=== PATIENT | female | born 1980 | race Caucasian/White ===

== ENCOUNTER → 2018-01-28 | Outpatient (CLI) | payer OTHER | END | disposition home or self-care (01) | LOC: C.LAB 10:19 | PROVIDERS: ATTEND Family Medicine | DX: Z00.00 Encounter for general adult medical examination without abnormal findings (principal) ==

== ENCOUNTER 2020-01-22 08:58 | Observation (INO) ==
--- NOTE | 2019-12-30 11:19 | PAT Medication Instructions ---
Medication Instructions Date of Service December 30, 2019 Home Medications albuterol sulfate 1 puff INHALATION Q6H PRN Take morning of surgery With a small sip of water, OTHERWISE NOTHING TO EAT OR DRINK AFTER MIDNIGHT: albuterol sulfate 1 puff INHALATION Q6H PRN (use if needed; please bring with you to hospital day of surgery if possible) Take evening before surgery albuterol sulfate 1 puff INHALATION Q6H PRN (if needed) Other Notes If you have any questions please call us at [phone] or [phone] or [phone] or [phone]
--- NOTE | 2019-12-31 09:36 | Anesthesiology Consultation ---
Date of Service December 31, 2019 Assessment & Plan (1) Encounter for pre-operative examination: - Check test AM DOS Per PAT assessment on 12/30: Travel screen- Lives in [facility]. Works in [employer]. Uses mask. Washes hands. No known COVID-19 positive contacts. No current COVID-19 related symptoms. Patient scheduled for preop protocol COVID-19 testing 01/18 ([facility] Awaiting results. Chart Review Chart Review: Acceptable Risk for Surgery (pending COVID testing) and Patient seen in Pre Admission Testing Teaching & Discussion Pre-Anesthesia Teaching/Discussion Notes: Instructed NPO after midnight before surgery,except medications with 15 cc of water. Medication instructions provided according to the PAT guidelines. History Surgery Operation Date: 01/22/20 12:10 Proposed Procedures p Robotic Total Laparoscopic Hysterectomy - Justin Lake MD Height/Weight Height: 4 ft 10 in Weight: 67.5 kg Allergies Allergy/AdvReac Type Severity Reaction Status Date / Time Bactrim Allergy Unknown HIVES Verified 02/07/16 14:43 lemon Allergy Unknown HIVES Verified 12/31/19 08:17 orange Allergy Unknown HIVES Verified 12/31/19 08:17 Sulfa (Sulfonamide Allergy Unknown HIVES Verified 12/31/19 08:17 Antibiotics) sulfamethoxazole Allergy Unknown HIVES Verified 12/31/19 08:17 trimethoprim Allergy Unknown HIVES Verified 12/31/19 08:17 adhesive Allergy Redness of Verified 12/31/19 08:17 Skin Medications Home Medications Medication Instructions Recorded Confirmed Last Taken albuterol sulfate 1 puff INHALATION Q6H PRN 05/14/19 12/31/19 Unknown Past Medical History Medical History Asthma exercise induced- stable History of kidney stones Exercise / Class Metabolic Activity II 4-5 Yardwork/Stairs/Walk up hill Past Family History Family History Mother Diabetes Aunt Diabetes Brother PONV (postoperative nausea and vomiting) Past Surgical History Surgical History [place] [facility] [place] History of cryosurgery History of ear surgery Hx of section X2 Hx of dilation and curettage Hx of mastoidectomy RIGHT Past Anesthesia History No Hx of Anesthesia Complications and No Family Hx of Anesthesia Complications (except brother- PONV*) History of PONV No Hx of PONV and No Hx of Motion Sickness Social History Smoking Status: Former smoker Do You Dip or Chew Tobacco: No Smoking End Date: Quit 2001 Hx Alcohol Use: Yes Alcohol type: wine alcohol intake frequency: holidays/special occasions only Hx Substance Use: No substance use type: does not use Review of Systems Patient denies chest pain, shortness of breath, fever, chills, cough, wheezing, palpitations. Physical Exam Vital Signs VITALS BP 112/77 P 71 TEMP 97.1 SP02 98%RA RESP 16 PHYSICAL Full neck and c-spine range of motion. Full TMJ range of motion. TMD 3 finger breaths Mallampati Score 3 Dentition: intact Lungs: clear throughout to auscultation Cardiac: regular rate and rhythm, no murmurs noted Spine: normal Extremities: no edema Testing Laboratory Results 12/31/19 09:50 Blood Type B Positive 12/31/19 09:50 Antibody Screen NEGATIVE 12/31/19 09:50
[2019-12-31 10:17] LABS: Basophils # (auto) 0.02 K/uL (0-0.2); Basophils % (auto) 0.3 %; Eosinophils # (auto) 0.26 K/uL (0-0.5); Eosinophils % (auto) 3.7 %; Hemoglobin 13.8 g/dL (12.0-16.0); Immature Granulocytes # (auto) 0.01 K/uL (0.00-0.02); Immature Granulocytes % (auto) 0.1 %; Lymphocytes # (auto) 2.19 K/uL (1.2-3.4); Lymphocytes % (auto) 31.1 %; Mean Corpuscular Hemoglobin 29.4 pg (25-34); Mean Corpuscular Hgb Conc 32.9 g/dL (32-36); Mean Corpuscular Volume 89.4 fL (80-100); Mean Platelet Volume 10.5 fL (7.4-10.4); Monocytes # (auto) 0.45 K/uL (0.11-0.59); Monocytes % (auto) 6.4 %; Neutrophils # (auto) 4.12 K/uL (1.4-6.5); Neutrophils % (auto) 58.4 %; Platelet Count 262 K/uL (130-400); RDW Coefficient of Variation 13.1 % (11.5-14.5); White Blood Count 7.05 K/uL (4.8-10.8)
[~2020-01-22 08:58] MED LIST: CEFAZOLIN 2000MG 2,000 MG/15 ML SYR IV SCH; DEXAMETHASONE SOD INJ 4 MG/ML VIAL ONE; GLYCOPYRROLATE 0.2 MG/ML VIAL ONE; LACTATED RINGER'S 1,000 ML IV SCH; LARYING-O-JET KIT (LTA) ONE; LIDOCAINE HCL 2% 2 ML VIAL/AMP(20MG/ML) INFIL ONE; LR 15ML/HR IV SCH; MIDAZOLAM HCL 1 MG/ML 2ML VIAL ONE; NEOSTIGMINE METHYLSULFATE 5 MG/5 ML SYR ONE; ONDANSETRON INJ 2 MG/ML 2 ML VIAL ONE; PROPOFOL IV EMULSION 10 MG/ML 20 ML VIAL IV ONE; ROCURONIUM BROMIDE 10 MG/ML 5 ML VIAL IV ONE; fentaNYL citrate 100 MCG/2 ML VIAL ONE
[2020-01-22 09:33] LABS: Basophils # (auto) 0.01 K/uL (0-0.2); Basophils % (auto) 0.2 %; Eosinophils # (auto) 0.32 K/uL (0-0.5); Hematocrit (blood only) 45.3 % (37-47); Hemoglobin 14.7 g/dL (12.0-16.0); Immature Granulocytes # (auto) 0.01 K/uL (0.00-0.02); Immature Granulocytes % (auto) 0.2 %; Lymphocytes # (auto) 2.18 K/uL (1.2-3.4); Mean Corpuscular Hemoglobin 29.3 pg (25-34); Mean Corpuscular Volume 90.2 fL (80-100); Mean Platelet Volume 10.1 fL (7.4-10.4); Monocytes # (auto) 0.45 K/uL (0.11-0.59); Neutrophils # (auto) 3.44 K/uL (1.4-6.5); Neutrophils % (auto) 53.6 %; Platelet Count 247 K/uL (130-400); RDW Coefficient of Variation 13.1 % (11.5-14.5); Red Blood Count 5.02 M/uL (4.2-5.4); White Blood Count 6.41 K/uL (4.8-10.8)
[2020-01-22 09:35] LABS: Mean Corpuscular Hgb Conc 32.5 g/dL (32-36)
--- NOTE | 2020-01-22 09:54 | History & Physical Bridge Note ---
Date of Service January 22, 2020 History & Physical Bridge Note I have examined the patient, reviewed the History & Physical and in the interval since the performance of the History & Physical I have noted the following changes of clinical significance: no changes noted
[2020-01-22] MEDS ORDERED: BUPIVACAINE 0.5 % 5 MG/1 ML MPF 30ML VIAL ONE (10:03)
[2020-01-22] MEDS ORDERED: ATROPINE SULFATE 0.1 MG/ML 10ML SYR IV PRN (10:26)
[2020-01-22] MEDS ORDERED: ONDANSETRON INJ 2 MG/ML 2 ML VIAL IV PRN ×2 (10:26→12:54)
[2020-01-22] MEDS ORDERED: fentaNYL citrate 100 MCG/2 ML VIAL IV PRN (10:26)
[2020-01-22] MEDS ORDERED: ePHEDrine sulfate 50 MG/ML AMP IV PRN (10:26)
[2020-01-22] MEDS ORDERED: KETOROLAC 30 MG/ML VIAL ONE (10:46)
[2020-01-22] MEDS ORDERED: fentaNYL citrate 100 MCG/2 ML VIAL ONE (10:51)
[2020-01-22] MEDS ORDERED: PHENYLEPHRINE 100MCG/ML 5ML SYR ONE (10:55)
[2020-01-22] MEDS ORDERED: ROCURONIUM BROMIDE 10 MG/ML 5 ML VIAL IV ONE ×2 (12:00)
[2020-01-22] MEDS ORDERED: TISSEEL FIBRIN SEALANT 10ML TOP ONE (12:52)
--- NOTE | 2020-01-22 12:53 | Post Operative Brief Note ---
PG Immediate Post Op with CF Date of Surgery January 22, 2020 Pre & Post Diagnosis Operation Date: 01/22/20 10:40 Pre-Op Diagnosis: Abnormal Uterine Bleeding, Pelvic Pain Post-Op Diagnosis: Abnormal Uterine Bleeding, Pelvic Pain, Extensive adhesive disease I identified the patient and participated in the time-out.: Yes Procedure Operation Date: 01/22/20 10:40 Actual Procedures p Robotic Total Laparoscopic Hysterectomy with Bilateral Salpaingectomies, Extensive lysis of adhesions >1 hour and Cystoscopy(Not Applicable) - Justin Lake MD Surgeon Justin Lake MD Assurance Engineer None Estimated Blood Loss 50 Findings Consistent with Post-Op Diagnosis Specimens Specimen Description: A. Uterus, cervix, and Bilateral Falopian Tubes Drains Rodriguez Catheter (18 Fr rodriguez catheter inserted by Dr. Lake without difficulty. Draining clear yellow urine, Anesthesia to monitor urine output. )
[2020-01-22] MEDS ORDERED: SIMETHICONE 80 MG CHEW PO PRN (12:54)
[2020-01-22] MEDS ORDERED: OXYCODONE/ACETAMINOPHEN 5mg/325mg TAB PO PRN ×2 (12:54)
[2020-01-22] MEDS ORDERED: KETOROLAC 30 MG/ML VIAL IV PRN (12:54)
[2020-01-22] MEDS ORDERED: ACETAMINOPHEN 325 MG TAB PO PRN (12:54)
--- NOTE | 2020-01-22 13:51 | Anesthesiology Progress Note ---
Date of Service January 22, 2020 Anesthesia Post Procedure Vital Signs Vital Signs: Temp Pulse Pulse Resp BP BP Pulse Ox 01/22/20 13:35 74 12 133/77 95 01/22/20 13:25 83 17 128/81 95 01/22/20 13:15 87 17 126/75 95 01/22/20 13:08 36.3 C L 100 H 15 122/74 96 01/22/20 09:36 36.7 C 81 20 127/86 97 Pain Intensity Abdomen: Pain Intensity: 2 Transfer of Care Handoff Completed per policy Notes Mental Status: alert / awake / arousable and participated in evaluation Patient Amnestic to Procedure: Yes Nausea / Vomiting: adequately controlled Pain: adequately controlled Airway Patency, RR, SpO2: stable & adequate BP & HR: stable & adequate Hydration State: stable & adequate Anesthetic Complications: no major complications apparent and Pt Satisfied with anesthetic care
[2020-01-22] MEDS ORDERED: DOCUSATE SODIUM 100 MG CAP PO SCH (21:00)
--- NOTE | 2020-01-23 13:32 | Operative Report (OR) ---
DATE OF OPERATION: 01/22/2020 PROCEDURE: Robotic-assisted total laparoscopic hysterectomy with bilateral salpingectomy, extensive lysis of adhesions was greater than 1 hour and cystoscopy. SURGEON: Dr. Justin Lake. PREOPERATIVE DIAGNOSES: 1. Abnormal uterine bleeding. 2. Pelvic pain. 3. Known extensive pelvic adhesive disease. POSTOPERATIVE DIAGNOSES: 1. Abnormal uterine bleeding. 2. Pelvic pain. 3. Known extensive pelvic adhesive disease. 4. Status post procedure. ESTIMATED BLOOD LOSS: 50 mL. DRAINS: Amor catheter. FLUIDS: Continuous lactated ringer. URINE OUTPUT: Per Amor catheter. COMPLICATIONS: None. FINDINGS: On evaluation of the abdomen and pelvis, there was noted to be a midline ventral hernia with omentum within the hernia sac. Omentum was dissected from the hernia sac without issue. There was noted to be extensive adhesive disease of the uterus, lower uterine segment and cervix to the anterior abdominal wall. These were dense adhesions. The remaining abdomen and pelvis were noted to have minimal adhesions, otherwise. DESCRIPTION OF PROCEDURE: The patient was taken to the Operating Room after consents were ensured. Upon presentation, she was properly identified. General endotracheal anesthesia was obtained without difficulty. The patient was then prepped and draped in normal sterile fashion. Preprocedure timeout was performed. A speculum was placed within the vagina and a [employer] uterine manipulator was placed per geodetic engineer specifications. A Amor catheter was then placed. The laparoscopic portion of the case was then initiated. An incision was made on the superior aspect of the umbilicus to accommodate a 12 mm trocar. A Veress needle was inserted through the incision. Abdomen was insufflated to 15 mmHg. There is noted to be symmetric abdominal rise, tympany over the liver and opening pressure of 5 mmHg, all consistent with appropriate intraabdominal insufflation. The 8 mm trocars were then placed under direct visualization in the right and left lower quadrants and left upper quadrant. Atraumatic entry was noted for all trocars. The robot was then docked. The omentum was then dissected out of the midline ventral hernia sac without difficulty. The uterus, ovaries were then able to be visualized and there was noted to be extensive adhesive disease of the lower uterus segment and cervix to the anterior abdominal wall. These were serially dissected out with care to ensure that no structures were involved in the dissection. The entirety of the dissection took greater than 1 hour to remove all adhesions from the anterior abdominal wall and uterus. After normal anatomy was restored from lysis of adhesions, the standard hysterectomy was then able to be initiated. The left round ligament was identified, serially cauterized and serially dissected. The uteroovarian ligament and vessels were identified, serially cauterized and dissected back to the level of the round ligament dissection. An anterior bladder flap was initiated, although due to the extensive adhesive disease, the portions of the peritoneum had already been dissected and the bladder was gently dissected off of the lower uterine segment and cervix. The right round ligament was then identified, serially cauterized and dissected. The right uteroovarian ligament was then identified, serially cauterized, dissected back to the level of the round ligament. The remaining peritoneum overlying the bladder flap on the right side was then dissected. There was noted to be continued extensive adhesive disease of the bladder to the lower uterine segment which was then dissected off of the lower uterine segment freeing the bladder. The broad ligaments were then dissected down to the level of the uterine vessels and the uterine vessels were skeletonized for clear dissection and cauterization dissection. The bladder was fully dissected off the cervix and vagina allowing a clear uterine manipulator cup to be visualized. The bilateral uterine vessels were then serially cauterized and dissected. The colpotomy was then initiated anteriorly and continued circumferentially around the cervix, freeing the vagina from the cervix. The uterus and cervix and remaining fallopian tubes were then able to be delivered through the vaginal cuff and vagina. The vaginal cuff was then closed with V-Loc suture in continuous running stitch. A cystoscopy was then performed with bilateral ureteral efflux, intact bladder noted. Tisseel was then distributed throughout all raw edges and vascular pedicles. Excellent hemostasis was noted and decision was made to end the laparoscopic portion of the case. The robot was then undocked. Abdomen desufflated, trocars removed. The fascia at the umbilical incision was then reapproximated with 0 Vicryl in an interrupted stitch. All skin incisions were reapproximated with 4-0 Vicryl in interrupted stitch. Dermabond was placed atop all incisions. A 12 mL of lidocaine were distributed throughout the 4 incisions. All needle, sponge and instrument counts were correct at the completion of the case. The patient was awoken from anesthesia and taken to Recovery Room in excellent condition. I attest to the content of the Intraoperative Record and any orders documented therein. Any exceptions are noted below. MTDD
--- NOTE | 2020-01-29 01:32 | Discharge Summary (DS) ---
PROCEDURES WHILE ADMITTED: Total laparoscopic hysterectomy, bilateral salpingectomy and cystoscopy. HOSPITAL COURSE: The patient was admitted for the above-noted procedure. Procedure was performed without complication. The patient remained in house for recovery for approximately 4-6 hours following the procedure and did well without any complications. The patient was discharged home in stable condition with planned followup in 2-3 weeks for continued care.
== END 2020-01-22 20:05 | disposition home or self-care (01) ==
LOC: 4N 08:58 → ASU 08:58

== ENCOUNTER 2020-02-10 18:24 | Inpatient (IN) ==
[2020-02-10] MEDS ORDERED: ACETAMINOPHEN 1,000 MG/100 ML VIAL IV STA (19:00)
[2020-02-10] MEDS ORDERED: SODIUM CHLORIDE 0.9% 1000ML 1,000 ML IV ONE (19:00)
--- NOTE | 2020-02-10 19:27 | Emergency Department Note ---
History of Present Illness General Chief Complaint: Abdominal Pain Stated Complaint: ABDOMINAL PAIN Time Seen by Provider: 02/10/20 18:54 History of Present Illness Provider Complaint: abdominal pain Onset (ago): 2 day(s) Pain Consistency: constant Location: diffuse Radiation: none Severity: moderate Maximum Pain Intensity: 7 Current Pain Intensity: 8 Quality: + aching and + sharp Relieved By: + nothing Exacerbated By: + nothing Context: + recent surgery/procedure (hysterectomy 2 weeks ago) Associated Symptoms: + fever (t max 103 earlier today) and + dysuria (foul smell urine); no nausea, no vomiting, no chills, no constipation, no hematemesis, no hematochezia, no melena, no hematuria, no syncope, no headache, no chest pain and no breathing difficulty Home Medications Home Medications Medication Instructions Recorded Confirmed Type albuterol sulfate 1 puff INHALATION Q6H PRN 05/14/19 02/10/20 History oxycodone-acetaminophen [Percocet] 1 tab PO Q4H PRN #14 tab 01/22/20 02/10/20 Rx acetaminophen [Tylenol] 0 mg PO QID PRN 02/10/20 02/10/20 History docusate sodium [Stool Softener] 100 mg PO DAILY PRN 02/10/20 02/10/20 History ibuprofen 200 mg PO Q6H PRN 02/10/20 02/10/20 History Allergies Allergy/AdvReac Type Severity Reaction Status Date / Time adhesive Allergy Intermediate Redness of Verified 02/10/20 20:15 Skin Bactrim Allergy Unknown HIVES Verified 02/07/16 14:43 lemon Allergy Unknown HIVES Verified 02/10/20 20:15 orange Allergy Unknown HIVES Verified 02/10/20 20:15 Sulfa (Sulfonamide Allergy Unknown HIVES Verified 02/10/20 20:15 Antibiotics) sulfamethoxazole Allergy Unknown HIVES Verified 02/10/20 20:15 trimethoprim Allergy Unknown HIVES Verified 02/10/20 20:15 Past Med/Surg History Medical History Asthma exercise induced- stable History of kidney stones Surgical History H/O bilateral sal[place]ectomy 05/2019 [place] [facility] [place] History of cryosurgery History of ear surgery Hx of section X2 Hx of dilation and curettage Hx of mastoidectomy RIGHT Family History Mother Diabetes Aunt Diabetes Brother PONV (postoperative nausea and vomiting) Social History Smoking Status: Former smoker Tobacco Type: Cigarettes Second Hand Exposure: Yes (DAILY BASIS); Hx Alcohol Use: Yes Alcohol type: wine Hx Substance Use: No Preferred Language: Setswana Communication Ability: Effective Beliefs That Will Affect Care: None Current Living Situation: Family Feels Safe at Home: Yes Review of Systems A total of 10 systems reviewed and were otherwise negative Physical Exam Vital Signs: Vital Signs - 24 hr 02/10/20 18:27 02/10/20 19:00 02/10/20 19:30 Temperature 36.8 C Temperature Source Oral Pulse Rate 112 H Pulse Rate from Sp O2 Sensor Respiratory Rate 20 Respiratory Effort / Characteristics Non-Labored Non-Labored Non-Labored Respiratory Depth Normal Blood Pressure 107/72 Blood Pressure Lisa n 83 Pulse Oximetry 97 Oxygen Delivery Me thod Room Air Room Air Sepsis Recent Feve r Within 48 Hours No Sepsis New/Unexpla ined Change in Men safia Status N/A Sepsis Action Take n by Nursing No Action Required 02/10/20 19:42 02/10/20 19:43 02/10/20 20:00 Temperature 37.7 C H Temperature Source Rectal Pulse Rate 93 H Pulse Rate from Sp O2 Sensor 93 H Respiratory Rate 19 Respiratory Effort / Characteristics Non-Labored Respiratory Depth Blood Pressure 114/82 Blood Pressure Lisa n 88 Pulse Oximetry 97 98 Oxygen Delivery Me thod Room Air Room Air Sepsis Recent Feve r Within 48 Hours Sepsis New/Unexpla ined Change in Men safia Status Sepsis Action Take n by Nursing 02/10/20 20:07 Temperature Temperature Source Pulse Rate 94 H Pulse Rate from Sp O2 Sensor 94 H Respiratory Rate 15 Respiratory Effort / Characteristics Respiratory Depth Blood Pressure 105/68 Blood Pressure Lisa n 81 Pulse Oximetry 98 Oxygen Delivery Me thod Room Air Sepsis Recent Feve r Within 48 Hours Sepsis New/Unexpla ined Change in Men safia Status Sepsis Action Take n by Nursing Physical Exam: Physical Exam GENERAL: She is oriented to person, place, and time. She appears well-developed and well-nourished. She does not appear distressed. HENT: Exam performed. -Head: Normocephalic and atraumatic. -Right Ear: External ear normal. No mastoid tenderness. -Left Ear: External ear normal. No mastoid tenderness. -Mouth/Throat: The oropharynx is clear and moist. No trismus in the jaw. No dental abscesses or uvula swelling. No oropharyngeal exudate or tonsillar abscesses. EYES: Conjunctivae and EOM are normal. Pupils are equal, round, and reactive to light. Right eye exhibits no discharge. Left eye exhibits no discharge. No scleral icterus. NECK: Normal range of motion. Neck supple. No JVD present. No spinous process tenderness present. No carotid bruit present. No rigidity. No tracheal deviation and normal range of motion present. No Brudzinski's sign and no Kernig's sign noted. CV: tachycardic rate, regular rhythm, normal heart sounds and intact distal pulses. There is no peripheral edema. Palpable radial pulses bue. PULM/CHEST: Effort normal and breath sounds normal. No respiratory distress. No stridor. She has no wheezes. She has no rales. -Chest Wall: She exhibits no tenderness. ABD: The abdomen is soft. incisions are clean and dry. no discharge or bleeding no surronding erythema. pain on palpation of the LLQ. MUSC/SKEL: Normal range of motion. There is no peripheral edema, tenderness or deformity. LYMPH: No cervical adenopathy. NEURO: She is alert and oriented to person, place, and time. She has normal strength. No cranial nerve deficit or sensory deficit. Coordination and gait normal. GCS eye subscore is 4. GCS verbal subscore is 5. GCS motor subscore is 6. Cerebellar tests wnl. SKIN: Skin is warm and dry. She is not diaphoretic. PSYCH: She has a normal mood and affect. Behavior is normal. Judgment and thought content normal. Course Course 1853: The patient was evaluated in room C2. A complete history and physical exam was performed. EMR reviewed. Patient had a laparoscopic hysterectomy salpingectomy and lysis of adhesions by Dr. Lake on January 23, 2020. 2101: Vital signs stable. Labs show leukocytosis of 14. Urine appears to be infected. CT shows pyelonephritis. Patient reports she is still having abdominal pain. Discussed case with [facility] hospitalist Dr. Bautista who agrees to admission. Administered Medications Discontinued Medications Acetaminophen (Ofirmev) 1,000 mg in 100 mls @ 400 mls/hr IV NOW STA Stop: 02/10/20 19:14 Last Infusion: 02/10/20 20:11 Dose: 0 mls/hr Documented by: [id number] Admin: 02/10/20 19:46 Dose: 400 mls/hr Documented by: [id number] Sodium Chloride (Nss 1000ml) 1,000 mls @ 999 mls/hr IV .Q1H1M ONE Stop: 02/10/20 20:00 Last Infusion: 02/10/20 20:31 Dose: 0 mls/hr Documented by: [id number] Admin: 02/10/20 19:46 Dose: 999 mls/hr Documented by: [id number] Ceftriaxone Sodium (Rocephin) 1,000 mg in 50 mls @ 100 mls/hr IV NOW STA Stop: 02/10/20 20:54 Last Infusion: 02/10/20 21:00 Dose: 0 mls/hr Documented by: [id number] Admin: 02/10/20 20:31 Dose: 100 mls/hr Documented by: [id number] Ioversol (Ioversol 100ml) 89 ml IV ONCE ONE Stop: 02/10/20 19:54 Last Admin: 02/10/20 19:53 Dose: 89 ml Documented by: [id number] Medical Decision Making Laboratory Data Result diagrams: 02/10/20 19:12 02/10/20 19:12 Lab Results 02/10/20 02/10/20 02/10/20 Range/Units 19:12 19:12 19:12 WBC 14.09 H (4.8-10.8) K/uL RBC 4.89 (4.2-5.4) M/uL Hgb 14.4 (12.0-16.0) g/dL POC Hgb (12.0-16.0) g/dl Hct 42.8 (37-47) % POC Hct (37-47) % MCV 87.5 (80-100) fL MCH 29.4 (25-34) pg MCHC 33.6 (32-36) g/dL RDW Std Deviation 41.3 (36.4-46.3) fL RDW Coeff of Bekah 12.8 (11.5-14.5) % Plt Count 238 (130-400) K/uL MPV 10.3 (7.4-10.4) fL Immature Gran % (Auto) 0.3 % Neut % (Auto) 80.3 % Lymph % (Auto) 11.5 % Starr % (Auto) 7.7 % Eos % (Auto) 0.1 % Baso % (Auto) 0.1 % Neut # (Auto) 11.32 H (1.4-6.5) K/uL Lymph # (Auto) 1.62 (1.2-3.4) K/uL Starr # (Auto) 1.09 H (0.11-0.59) K/uL Eos # (Auto) 0.01 (0-0.5) K/uL Baso # (Auto) 0.01 (0-0.2) K/uL Immature Gran # (Auto) 0.04 H (0.00-0.02) K/uL PT 11.6 (9.0-12.0) Seconds INR 1.1 (0.9-1.1) APTT 35.3 H (21.0-31.0) Seconds PTT Ratio 1.3 POC Sodium (135-144) mmol/L Sodium 134 L (136-145) mmol/L POC Potassium (3.3-5.0) mmol/L Potassium 3.5 (3.5-5.1) mmol/L POC Chloride (101-112) mmol/L Chloride 103 (98-107) mmol/L Carbon Dioxide 23 (21-32) mmol/L POC Total CO2 (24-31) mmol/L Anion Gap 8.0 (3-11) POC Anion Gap (16-25) mmol/L POC BUN (7-18) mg/dl BUN 13 (7-18) mg/dl Creatinine 1.24 H (0.6-1.2) mg/dl POC Creatinine (0.6-1.3) mg/dl Est Cr Clr Drug Dosing 51.3 ml/min Est GFR ( Amer) 62.9 Est GFR (Non-Af Amer) 54.3 BUN/Creatinine Ratio 10.6 (10-20) Glucose 99 (70-99) mg/dl POC Glucose (other) (70-99) mg/dl Lactate (0.4-2.0) mmol/L Calcium 9.2 (8.5-10.1) mg/dl POC Ioniz Calcium Batool (1.12-1.32) mmol/l Magnesium 2.1 (1.8-2.4) mg/dl Total Bilirubin 0.6 (0.2-1) mg/dl AST 10 L (15-37) U/L ALT 15 (12-78) U/L Alkaline Phosphatase 89 (45-117) U/L Total Protein 8.0 (6.4-8.2) gm/dl Albumin 3.5 (3.4-5.0) gm/dl Globulin 4.5 H (2.5-4.0) gm/dl Albumin/Globulin Ratio 0.8 L (0.9-2) Urine Color Urine Appearance (Clear) Urine pH (4.5-7.5) Ur Specific [place] (1.000-1.030) Urine Protein (Negative) Urine Glucose (UA) (Negative) Urine Ketones (Negative) Urine Blood (Negative) Urine Nitrite (Negative) Urine Bilirubin (Negative) Urine Urobilinogen (Negative) Ur Leukocyte Esterase (Negative) Urine WBC (Auto) (0-5) /hpf Urine RBC (Auto) (0-4) /hpf U Hyaline Cast (Auto) (0-5) /lpf U Epithel Cells (Auto) (0-5) /lpf Urine Bacteria (Auto) (Negative) 02/10/20 02/10/20 02/10/20 Range/Units 19:19 19:31 20:00 WBC (4.8-10.8) K/uL RBC (4.2-5.4) M/uL Hgb (12.0-16.0) g/dL POC Hgb 15.6 (12.0-16.0) g/dl Hct (37-47) % POC Hct 46 (37-47) % MCV (80-100) fL MCH (25-34) pg MCHC (32-36) g/dL RDW Std Deviation (36.4-46.3) fL RDW Coeff of Bekah (11.5-14.5) % Plt Count (130-400) K/uL MPV (7.4-10.4) fL Immature Gran % (Auto) % Neut % (Auto) % Lymph % (Auto) % Starr % (Auto) % Eos % (Auto) % Baso % (Auto) % Neut # (Auto) (1.4-6.5) K/uL Lymph # (Auto) (1.2-3.4) K/uL Starr # (Auto) (0.11-0.59) K/uL Eos # (Auto) (0-0.5) K/uL Baso # (Auto) (0-0.2) K/uL Immature Gran # (Auto) (0.00-0.02) K/uL PT (9.0-12.0) Seconds INR (0.9-1.1) APTT (21.0-31.0) Seconds PTT Ratio POC Sodium 136 (135-144) mmol/L Sodium (136-145) mmol/L POC Potassium 3.6 (3.3-5.0) mmol/L Potassium (3.5-5.1) mmol/L POC Chloride 101 (101-112) mmol/L Chloride (98-107) mmol/L Carbon Dioxide (21-32) mmol/L POC Total CO2 21 L (24-31) mmol/L Anion Gap (3-11) POC Anion Gap 19.0 (16-25) mmol/L POC BUN 14 (7-18) mg/dl BUN (7-18) mg/dl Creatinine (0.6-1.2) mg/dl POC Creatinine 1.1 (0.6-1.3) mg/dl Est Cr Clr Drug Dosing ml/min Est GFR ( Amer) Est GFR (Non-Af Amer) BUN/Creatinine Ratio (10-20) Glucose (70-99) mg/dl POC Glucose (other) 105 H (70-99) mg/dl Lactate 1.2 (0.4-2.0) mmol/L Calcium (8.5-10.1) mg/dl POC Ioniz Calcium Batool 1.16 (1.12-1.32) mmol/l Magnesium (1.8-2.4) mg/dl Total Bilirubin (0.2-1) mg/dl AST (15-37) U/L ALT (12-78) U/L Alkaline Phosphatase (45-117) U/L Total Protein (6.4-8.2) gm/dl Albumin (3.4-5.0) gm/dl Globulin (2.5-4.0) gm/dl Albumin/Globulin Ratio (0.9-2) Urine Color Dark Yellow Urine Appearance Turbid A (Clear) Urine pH 5.0 (4.5-7.5) Ur Specific [place] 1.029 (1.000-1.030) Urine Protein 2+ H (Negative) Urine Glucose (UA) Negative (Negative) Urine Ketones 3+ H (Negative) Urine Blood 3+ H (Negative) Urine Nitrite Negative (Negative) Urine Bilirubin Negative (Negative) Urine Urobilinogen Negative (Negative) Ur Leukocyte Esterase 2+ H (Negative) Urine WBC (Auto) >30 H (0-5) /hpf Urine RBC (Auto) >30 H (0-4) /hpf U Hyaline Cast (Auto) 5-10 H (0-5) /lpf U Epithel Cells (Auto) >30 H (0-5) /lpf Urine Bacteria (Auto) 4+ H (Negative) Imaging Data Radiologist's Impression: XR chest 1V portable HISTORY: 39 years-old Female SEPSIS acute sepsis COMPARISON: Chest radiograph 07/10/2010 TECHNIQUE: Portable AP view of the chest FINDINGS: Cardiomediastinal and hilar silhouettes are within normal limits. 11 mm left perihilar nodular opacity. No pneumothorax, pleural effusion, airspace consolidation or overt pulmonary edema. Bones appear grossly intact. IMPRESSION: 1. No acute process. 2. 11 mm left perihilar nodular opacity may be secondary to summation density from pulmonary vasculature. ACT 112: Negative or not required by law. The above report was generated using voice recognition software. It may contain grammatical, syntax or spelling errors. Electronically signed by: Samuel Lemus M.D. 02/10/2020 7:30 PM Dictated: 02/10/201927 Transcribed: 02/10/201927 ABDOMEN AND PELVIS CT WITH IV CONTRAST CT DOSE: 290.76 mGy.cm HISTORY: Acute left lower quadrant abdominal pain with fever. Recent hysterectomy. fever llq pain post op hysterectomy 2 wks ago TECHNIQUE: Multiaxial CT images of the abdomen and pelvis were performed fo llowing the IV administration of 89 cc of Optiray 320, A dose lowering technique was utilized adhering to the principles of ALARA. COMPARISON STUDY: CT abdomen and pelvis 02/04/2016 FINDINGS: Clear lung bases. No pneumatosis or pneumoperitoneum. The imaged inferior cardiac chambers are unremarkable. The spleen, pancreas, adrenal glands and gallbladder are unremarkable. The liver is also within normal limits. Patency of the hepatic and portal veins. Unremarkable gallbladder. 6 mm cyst of the superior pole left kidney. Nonobstructing calculi of the inferior pole left kidney measure up to 4 mm. Nonobstructing right nephrolithiasis includes an 11 mm calculus of the right superior pole. Uroth elial thickening of the right renal pelvis and calyces. Heterogeneity with decreased enhancement involves the inferior pole right kidney, most pronounced posteriorly and laterally with perinephric stranding. No significant obstructive uropathy. Decompressed urinary bladder. Hysterectomy. Cystic lesion of the right adnexum measures 4.7 x 5.2 cm. Trace free pelvic fluid. No aortic aneurysm or adenopathy. No bowel obstruction or bowel wall thickening. Moderate fecal retention. The appendix is not definitively seen. Soft tissues are unremarkable. Bones appear intact. IMPRESSION: 1. Findings compatible with right-sided pyelonephritis. Associated urothelial thickening of the collecting system and ureter is suggestive of associated pyelitis/ureteritis. Mild right-sided pelvocaliectasis with prominence of the right ureter is likely secondary to associated infection. 2. Nonobstructing bilateral nephrolithiasis. 3. Hysterectomy. Trace free pelvic fluid is likely physiologic. 4. 4.7 x 5.2 cm right ovarian cyst. ACT 112: Negative or not required by law. The above report was generated using voice recognition software. It may contain grammatical, syntax or spelling errors. Electronically signed by: Samuel Lemus M.D. 02/10/2020 8:13 PM Dictated: 02/10/202003 Transcribed: 02/10/202003 ECG Data Indication: abdominal pain Rate (beats per minute): 90 Rhythm: normal sinus Findings: no ST depression and no ST elevation Additional Comments: SD QRS and QTc intervals are within normal limits. MDM Narrative Vital signs stable. Labs show leukocytosis of 14. Urine appears to be infected. CT shows pyelonephritis. Patient reports she is still having abdominal pain. Discussed case with [facility] hospitalist Dr. Bautista who agrees to admission. Impression & Plan Pyelonephritis Discharge Plan Visit Data Chief Complaint: Abdominal Pain Stated Complaint: ABDOMINAL PAIN ED Provider: Jaycob Sigala Discharge Problem: Pyelonephritis Patient Disposition: Being Evaluated by Hospitalist Forms Stand Alone Forms: [facility], Virtual Emergency Department, Important Visit Information Prescriptions Prescriptions: No Action albuterol sulfate 90 mcg/actuation Hfa Aerosol Inhaler 1 puff INHALATION Q6H PRN (Reason: ASTHMA) RF: 0 oxycodone-acetaminophen [Percocet] 5-325 mg Tablet 1 tab PO Q4H PRN (Reason: pain) Qty: 14 RF: 0 acetaminophen [Tylenol] 325 mg Tablet 0 mg PO QID PRN (Reason: Pain) RF: 0 ibuprofen 200 mg Tablet 200 mg PO Q6H PRN (Reason: Pain) RF: 0 docusate sodium [Stool Softener] 100 mg Capsule 100 mg PO DAILY PRN (Reason: Constipation) RF: 0 Referrals Referrals: Elroy Barahona MD [Primary Care Provider] -
[2020-02-10 19:30] LABS: Basophils # (auto) 0.01 K/uL (0-0.2); Basophils % (auto) 0.1 %; Eosinophils # (auto) 0.01 K/uL (0-0.5); Eosinophils % (auto) 0.1 %; Hematocrit (blood only) 42.8 % (37-47); Hemoglobin 14.4 g/dL (12.0-16.0); Immature Granulocytes # (auto) 0.04 K/uL (0.00-0.02); Immature Granulocytes % (auto) 0.3 %; Lymphocytes # (auto) 1.62 K/uL (1.2-3.4); Lymphocytes % (auto) 11.5 %; Mean Corpuscular Hemoglobin 29.4 pg (25-34); Mean Corpuscular Hgb Conc 33.6 g/dL (32-36); Mean Corpuscular Volume 87.5 fL (80-100); Mean Platelet Volume 10.3 fL (7.4-10.4); Monocytes # (auto) 1.09 K/uL (0.11-0.59); Monocytes % (auto) 7.7 %; Neutrophils # (auto) 11.32 K/uL (1.4-6.5); Neutrophils % (auto) 80.3 %; Platelet Count 238 K/uL (130-400); RDW Coefficient of Variation 12.8 % (11.5-14.5); RDW Standard Deviation 41.3 fL (36.4-46.3); Red Blood Count 4.89 M/uL (4.2-5.4); White Blood Count 14.09 K/uL (4.8-10.8)
--- NOTE | 2020-02-10 19:31 | XRay Report ---
XR chest 1V portable HISTORY: 39 years-old Female SEPSIS acute sepsis COMPARISON: Chest radiograph 07/10/2010 TECHNIQUE: Portable AP view of the chest FINDINGS: Cardiomediastinal and hilar silhouettes are within normal limits. 11 mm left perihilar nodular opacit y. No pneumothorax, pleural effusion, airspace consolidation or overt pulmonary edema. Bones appear g rossly intact. IMPRESSION: 1. No acute process. 2. 11 mm left perihilar nodular opacity may be secondary to summation density from pulmonary vasculat ure. ACT 112: Negative or not required by law. The above report was generated using voice recognition software. It may contain grammatical, syntax o r spelling errors. Electronically signed by: Samuel Lemus M.D. 02/10/2020 7:30 PM
[2020-02-10 19:32] LABS: iSTAT Creatinine 1.1 mg/dl (0.6-1.3); iSTAT Hemoglobin 15.6 g/dl (12.0-16.0); iSTAT Ionized Calcium 1.16 mmol/l (1.12-1.32); iSTAT Potassium 3.6 mmol/L (3.3-5.0)
[2020-02-10 19:40] LABS: INR 1.1 (0.9-1.1); Partial Thromboplastin Ratio 1.3; Partial Thromboplastin Time 35.3 Seconds (21.0-31.0); Prothrombin Time 11.6 Seconds (9.0-12.0)
[2020-02-10 19:47] LABS: Albumin Level 3.5 gm/dl (3.4-5.0); BUN Creatinine Ratio 10.6 (10-20); Calcium 9.2 mg/dl (8.5-10.1); Creatinine Clr Calc Pharmacy 51.3 ml/min; Est GFR (African American) 62.9; Est GFR (Non-African American) 54.3; Magnesium 2.1 mg/dl (1.8-2.4); Potassium 3.5 mmol/L (3.5-5.1)
[2020-02-10 19:50] LABS: Albumin Globulin Ratio 0.8 (0.9-2); Bilirubin,Total 0.6 mg/dl (0.2-1); Globulin 4.5 gm/dl (2.5-4.0)
[2020-02-10] MEDS ORDERED: IOVERSOL 100ml IV ONE (19:53)
--- NOTE | 2020-02-10 20:14 | CT Scan Report ---
ABDOMEN AND PELVIS CT WITH IV CONTRAST CT DOSE: 290.76 mGy.cm HISTORY: Acute left lower quadrant abdominal pain with fever. Recent hysterectomy. fever llq pain po st op hysterectomy 2 wks ago TECHNIQUE: Multiaxial CT images of the abdomen and pelvis were performed following the IV administrat ion of 89 cc of Optiray 320, A dose lowering technique was utilized adhering to the principles of AL JOSE. COMPARISON STUDY: CT abdomen and pelvis 02/04/2016 FINDINGS: Clear lung bases. No pneumatosis or pneumoperitoneum. The imaged inferior cardiac chambers are unrema rkable. The spleen, pancreas, adrenal glands and gallbladder are unremarkable. The liver is also with in normal limits. Patency of the hepatic and portal veins. Unremarkable gallbladder. 6 mm cyst of the superior pole left kidney. Nonobstructing calculi of the inferior pole left kidney m easure up to 4 mm. Nonobstructing right nephrolithiasis includes an 11 mm calculus of the right super ior pole. Urothelial thickening of the right renal pelvis and calyces. Heterogeneity with decreased e nhancement involves the inferior pole right kidney, most pronounced posteriorly and laterally with pe rinephric stranding. No significant obstructive uropathy. Decompressed urinary bladder. Hysterectomy. Cystic lesion of the right adnexum measures 4.7 x 5.2 cm. Trace free pelvic fluid. No aortic aneurys m or adenopathy. No bowel obstruction or bowel wall thickening. Moderate fecal retention. The appendix is not definiti vely seen. Soft tissues are unremarkable. Bones appear intact. IMPRESSION: 1. Findings compatible with right-sided pyelonephritis. Associated urothelial thickening of the colle cting system and ureter is suggestive of associated pyelitis/ureteritis. Mild right-sided pelvocaliec tasis with prominence of the right ureter is likely secondary to associated infection. 2. Nonobstructing bilateral nephrolithiasis. 3. Hysterectomy. Trace free pelvic fluid is likely physiologic. 4. 4.7 x 5.2 cm right ovarian cyst. ACT 112: Negative or not required by law. The above report was generated using voice recognition software. It may contain grammatical, syntax o r spelling errors. Electronically signed by: Samuel Lemus M.D. 02/10/2020 8:13 PM
[2020-02-10 20:22] LABS: Appearance Urine Turbid (Clear); Bacteria Urine Automated 4+ (Negative); Blood Urine 3+ (Negative); Color Urine Dark Yellow; Epithelial Cell Urine Auto >30 /lpf (0-5); Glucose Urine UA Negative (Negative); Ketones Urine 3+ (Negative); Leukocyte Esterase Urine 2+ (Negative); Nitrite Urine Negative (Negative); Protein Urine 2+ (Negative); RBC Urine Automated >30 /hpf (0-4); Specific Gravity Urine 1.029 (1.000-1.030); Urobilinogen Urine Negative (Negative); WBC Urine Automated >30 /hpf (0-5)
[2020-02-10 20:24] LABS: Bilirubin Urine Negative (Negative); Ictotest Urine Negative (Negative)
[2020-02-10] MEDS ORDERED: cefTRIAXone SODIUM 1,000 MG/50 ML BAG IV STA (20:25)
[2020-02-11] MEDS ORDERED: DOCUSATE SODIUM 100 MG CAP PO PRN (01:15)
[2020-02-11] MEDS ORDERED: POLYETHYLENE (MIRALAX) 17 GM PACK PO PRN (01:15)
[2020-02-11] MEDS ORDERED: ALBUTEROL HFA 8 GM INHALER INH PRN (01:15)
[2020-02-11] MEDS ORDERED: OXYCODONE/ACETAMINOPHEN 5mg/325mg TAB PO PRN (01:15)
[2020-02-11] MEDS ORDERED: SODIUM CHLORIDE 0.9% 1000ML 1,000 ML IV SCH (01:15)
[2020-02-11] MEDS ORDERED: ACETAMINOPHEN 325 MG TAB PO PRN ×2 (01:15→07:34)
[2020-02-11] MEDS ORDERED: ONDANSETRON INJ 2 MG/ML 2 ML VIAL IV PRN (01:15)
--- NOTE | 2020-02-11 01:37 | History and Physical Report ---
DATE OF ADMISSION: 02/10/2020 CHIEF COMPLAINT: Abdominal pain. HISTORY OF PRESENT ILLNESS: A 39-year-old female with past medical history significant for history of kidney stones, history of recently on 01/22/20 had total laparoscopic hysterectomy with bilateral salpingectomy and cystoscopy. The patient says she had surgery because her uterus was attached to her bladder. Comes because today morning around 3:00 a.m. she woke up with abdominal pain, mostly in the right lower side and mildly on the right flank side associated with some fever. Denies any nausea, vomiting. No burning micturition, no hematuria. Normal bowel movements. No black stools or blood in the stools. No chest pain, no shortness of breath, no cough, no headache, no blurred vision, no earache, no runny nose, no sore throat, no dysphagia, no loss of sense of smell or taste. Currently resting comfortably and hemodynamically stable. ALLERGIES: ADHESIVES, BACTRIM, LEMON, ORANGE, SULFA ANTIBIOTICS. PAST MEDICAL HISTORY: As mentioned above. PAST SURGICAL HISTORY: induced by D and C, , colposcopy of cervix with biopsy, cystoscopy, dental surgery, ligation of oviducts, hysterectomy with bilateral oophorectomy on 01/22/2020. MEDICATIONS: The patient is currently on Tylenol p.r.n., ibuprofen p.r.n., Percocet 1 tablet p.o. q. 4 hours p.r.n., Colace 100 mg p.o. daily p.r.n., albuterol 1 puff q. 6 hours p.r.n. FAMILY HISTORY: Significant for mother has hypertension and diabetes; father has heart disorder, gastrointestinal disorder, Parkinson's disease, blood disorder; daughter has asthma; brother has asthma. SOCIAL HISTORY: . Quit smoking in 2012. Alcohol occasional. No drug use. REVIEW OF SYSTEMS: As per HPI. Rest of the review of systems negative. PHYSICAL EXAMINATION: GENERAL: The patient is of moderate build, not in acute distress. VITAL SIGNS: Temperature 37.7, pulse 71, respiratory rate 14, blood pressure 117/72, oxygen 97% on room air. HEENT: Pupils equal, round, reactive to light. NECK: No JVD, no neck masses. CARDIOVASCULAR: S1, S2 heard, regular rate and rhythm, no murmur, no gallop. RESPIRATORY SYSTEM: Normal AP diameter. No accessory muscle use. No wheezing, no crackles. ABDOMEN: Soft, bowel sounds present. There is tenderness in right lower quadrant region. No CVA tenderness. No guarding, no rigidity. CENTRAL NERVOUS SYSTEM: Cranial nerves II-XII grossly intact. Nonfocal. EXTREMITIES: No edema, no erythema. LABORATORY DATA: WBC 14, hemoglobin 14.4, hematocrit 42.8, platelets 238. PT 11.6, INR 1.1, APTT 35.3. Sodium 134, potassium 3.5, chloride 103, bicarbonate 23, BUN 13, creatinine 1.24, serum glucose 99. Lactate 1.2, calcium 9.2, magnesium 2.1, total bilirubin 0.6, AST 10, ALT 15, alkaline phosphatase 89. Urinalysis, positive for leukocyte esterase and bacteria. IMAGING DATA: Chest x-ray, no acute findings. CT of abdomen and pelvis compatible with right-sided pyelonephritis with associated urothelial thickening of the collecting system and ureter is suggestive of associated pyelitis, ureteritis, nonobstructing bilateral nephrolithiasis, 4.7 x 5.2 right ovarian cyst. EKG: Normal sinus rhythm at a rate of 90, nonspecific ST abnormalities. ASSESSMENT AND PLAN: This is a 39-year-old female who presents with abdominal pain and found to have acute pyelonephritis. 1. Acute pyelonephritis and possible pyelitis, nonobstructive kidney stones. Empirically started on Rocephin which will be continued, IV fluids. Consult urology in the a.m. for further recommendation. Follow the cultures. Follow the response. 2. Right-sided ovarian cyst, needs followup. 3. Deep venous thrombosis prophylaxis, sequential compression devices. 4. Acute kidney injury, creatinine of 1.2. Follow the labs in the a.m. DISPOSITION: Admit to medical floor. Expect to discharge home and follow with family doctor. Level 1 full code. MTDD
[2020-02-11 07:03] LABS: BUN Creatinine Ratio 12.4 (10-20); Creatinine Clr Calc Pharmacy 69.5 ml/min; Est GFR (Non-African American) 81.1; Potassium 3.7 mmol/L (3.5-5.1)
[2020-02-11 07:09] LABS: Hematocrit (blood only) 36.6 % (37-47); Hemoglobin 12.3 g/dL (12.0-16.0); Mean Corpuscular Hemoglobin 29.6 pg (25-34); Mean Corpuscular Hgb Conc 33.6 g/dL (32-36); Mean Corpuscular Volume 88.2 fL (80-100); RDW Coefficient of Variation 13.1 % (11.5-14.5); RDW Standard Deviation 42.2 fL (36.4-46.3); Red Blood Count 4.15 M/uL (4.2-5.4); White Blood Count 9.01 K/uL (4.8-10.8)
[2020-02-11 07:12] LABS: Basophils # (auto) 0.01 K/uL (0-0.2); Basophils % (auto) 0.1 %; Eosinophils # (auto) 0.05 K/uL (0-0.5); Eosinophils % (auto) 0.6 %; Immature Granulocytes # (auto) 0.03 K/uL (0.00-0.02); Immature Granulocytes % (auto) 0.3 %; Lymphocytes # (auto) 1.25 K/uL (1.2-3.4); Lymphocytes % (auto) 13.9 %; Monocytes # (auto) 0.88 K/uL (0.11-0.59); Monocytes % (auto) 9.8 %; Neutrophils # (auto) 6.79 K/uL (1.4-6.5); Neutrophils % (auto) 75.3 %
[2020-02-11] MEDS ORDERED: HYDROmorphone INJ 0.5 MG/0.5 ML SYR IV PRN (07:34)
--- NOTE | 2020-02-11 08:12 | Urology Consultation ---
Date of Consultation February 11, 2020 Assessment & Plan (1) Pyelonephritis: 39 yo F with past medical history of kidney stones admitted for pyelonephritis. - Pt clinically and subjectively improving. - Afebrile, WBC and Cr are within normal limits today. - CT imaging reviewed with Dr. Stuart, findings suggestive of pyelonephritis/pyelitis, no obstructive uropathy. - No surgical intervention needed at this time. - UC&S showing prelim E. coli, sensitivities pending. BCx pending. Continue broad spectrum antibiotics, await sensitivities. - Recommend continue antibiotics and supportive care - Plan to transition to PO antibiotics at discharge based on sensitivities. Recommend antibiotics for total x 14 days. - Recommend follow-up outpatient with our service in 3-4 weeks after completion of antibiotics. Thank you for allowing us to participate in the acute care of Mrs. Connelly. Please reconsult us with additional questions, concerns or changes in patient status. History of Present Illness Reason for Consultation: Right pyelonephritis Attending Physician: Thomas Cabrera MD History of Present Illness 39 yo F with past medical history of kidney stones admitted for pyelonephritis. Patient presented to [facility] ED on 02/10/20 with abdominal pain, fever, and dysuria. She is s/p hysterectomy 2 weeks ago. Lab work on admission: WBC 14.09, Creatinine 1.24, Lactate 1.2. UA suggestive of infection, urine culture and blood cultures collected. Contrasted CT abd/pelvis showed urothelial thickening of the right renal pelvis and calyces, heterogenicity with decreased enhancement of the inferior pole right kidney with perinephric stranding. No obstructive uropathy. Nonobstructing bilateral nephrolithiasis, including nonobstructing calculi of the inferior pole left kidney measure up to 4 mm. Nonobstructing right nephrolithiasis includes an 11 mm calculus of the right superior pole. She was treated with IV Fluids, IV Tylenol and IV Ceftriaxone in the ED. Admitted for further management. Our service is consulted for right pyelonephritis and pyelitis. Chart review: Afebrile overnight, Tmax 37.7 on 02/09 @1943 Cr (02/10) - 0.89 WBC (02/10) - 9.01 UC&S 02/09 - prelim E. coli BCx 02/09 - pending On IV Ceftriaxone Patient examined at bedside. Awake and alert, sitting up in bed. Reports she is feeling much better today. No fever or chills. Tolerating diet, no nausea or vomiting. No flank or abdominal pain at this time. Voiding spontaneously. No dysuria or hematuria. Reports feeling of bladder pressure. Has sensation of incomplete emptying at baseline. Per her report, this was one of the reasons she had a hysterectomy. Last BM was 3 days ago. She reports that she was given something for her bowels today. History of nephrolithiasis. Past urology care with Dr. Lenz of [facility]. History of URS/lithotripsy ~2 years ago. History of spontaneous passage greater than 2 years ago. No additional urological concerns today. Allergies Allergy/AdvReac Type Severity Reaction Status Date / Time adhesive Allergy Intermediate Redness of Verified 02/10/20 20:15 Skin Bactrim Allergy Unknown HIVES Verified 02/07/16 14:43 lemon Allergy Unknown HIVES Verified 02/10/20 20:15 orange Allergy Unknown HIVES Verified 02/10/20 20:15 Sulfa (Sulfonamide Allergy Unknown HIVES Verified 02/10/20 20:15 Antibiotics) sulfamethoxazole Allergy Unknown HIVES Verified 02/10/20 20:15 trimethoprim Allergy Unknown HIVES Verified 02/10/20 20:15 Home Medications Home Medications Medication Instructions Recorded Confirmed Type albuterol sulfate 1 puff INHALATION Q6H PRN 05/14/19 02/10/20 History oxycodone-acetaminophen [Percocet] 1 tab PO Q4H PRN #14 tab 01/22/20 02/10/20 Rx acetaminophen [Tylenol] 0 mg PO QID PRN 02/10/20 02/10/20 History docusate sodium [Stool Softener] 100 mg PO DAILY PRN 02/10/20 02/10/20 History ibuprofen 200 mg PO Q6H PRN 02/10/20 02/10/20 History Patient History Medical History Asthma exercise induced- stable History of kidney stones Surgical [place] [facility] [place] History of cryosurgery History of ear surgery Hx of section X2 Hx of dilation and curettage Hx of mastoidectomy RIGHT Family History Mother Diabetes Aunt Diabetes Brother PONV (postoperative nausea and vomiting) Social History Smoking Status: Former smoker Tobacco Type: Cigarettes Second Hand Exposure: Yes (DAILY BASIS); Hx Alcohol Use: No Hx Substance Use: No Preferred Language: Welsh Communication Ability: Effective Cell Tower Climber Required: No Beliefs That Will Affect Care: None Current Living Situation: Spouse Feels Safe at Home: Yes Review of Systems Constitutional: as per Subjective / HPI Gastrointestinal: as per Subjective / HPI Genitourinary: as per Subjective / HPI Physical Exam Constitutional: well developed and well nourished; no acute distress and not ill appearing Respiratory: normal respiratory effort and able to speak in complete sentences; no respiratory distress and no labored breathing Cardiovascular: Extremities: no pedal edema Gastrointestinal (Abdomen): Inspection/Auscultation: abdomen normal to inspection; abdomen not distended Percussion/Palpation: abdomen soft; abdomen nontender and no guarding Musculoskeletal: Head/Neck/Chest: normocephalic and head atraumatic Extremities: extremities normal to inspection Skin: no rashes, warm and dry Neurologic: moves all extremities and awake Psychiatric: Orientation: alert, oriented x 3 and cooperative Eye Contact: good eye contact Genitourinary: no CVA tenderness Results & Data ([facility]) Vital Signs (Past 12 Hours) Vital Signs Temp Pulse Pulse Resp BP BP Pulse Ox 02/11/20 07:31 37.5 C 99 H 14 128/84 97 02/11/20 01:10 36.6 C 84 18 117/79 97 02/11/20 00:55 84 19 116/72 99 02/10/20 23:36 71 14 117/72 97 02/10/20 22:00 80 15 106/77 97 02/10/20 21:30 79 20 113/86 97 02/10/20 21:00 80 15 114/72 97 02/10/20 20:30 88 17 116/77 97 PG Care Time/CCT Total # of Minutes Spent Total Time Spent with Patient: Total time spent is greater than 50% in coordination of care (as documented) at patient's floor/unit and/or counseling patient: Coding Level of Care Code 96254 Inpt Consult Level 3 Diagnoses Pyelonephritis N12
[2020-02-11] MEDS: OXYCODONE HCL IR 5 MG TAB (IMMEDIATE RELEASE) PO PRN ×2 (08:34→19:30)
--- NOTE | 2020-02-11 08:40 | Hospitalist Progress Note ---
Date of Service February 11, 2020 Assessment & Plan (1) Pyelonephritis: -admission CT scan Findings compatible with right-sided pyelonephritis. Associated urothelial thickening of the collecting system and ureter is suggestive of associated pyelitis/ureteritis. Mild right-sided pelvocaliectasis with prominence of the right ureter is likely secondary to associated infection. Nonobstructing bilateral nephrolithiasis. Hysterectomy. Trace free pelvic fluid is likely physiologic. 4.7 x 5.2 cm right ovarian cyst. -empirically started on ceftriaxone. continue antibiotics -Urine culture with E.coli, await sensitivities -02/11/2020 day time hospitalist updates: Patient reports history of hysterectomy 2 and half weeks ago and then subsequently she had fevers at home and may be incomplete bladder emptying. Patient reports right flank pain still present. She is not in distress. no vomiting. She reports that it is usual for her to have 2 bowel movements a week and her last bowel movement was on Saturday02/08/2020. Patient agree to starting flomax and bladder scan qshift and increase bowel christopher men -prn pain medications and prn anti-pyretics -formal urology consultation evaluation appreciated Right ovarian cyst -outpatient follow up History of Hysterectomy DVT prophylaxis: SCDs, ambulation Admission and Anticipated Discharge Date Admission Date: February 10, 2020 Subjective Patient reports history of hysterectomy 2 and half weeks ago and then subsequently she had fevers at home and may be incomplete bladder emptying. Patient reports right flank pain still present. She is not in distress. no vomiting. She reports that it is usual for her to have 2 bowel movements a week and her last bowel movement was on Saturday02/08/2020 Patient agree to starting flomax and bladder scan qshift and increase bowel regimen no chest pain, no abdomen pain, no dizziness. no headache. no shortness of breath Review of Systems Review of Systems: All systems reviewed & are unremarkable except as noted in Subjective Physical Exam Constitutional: cooperative Eyes: PERRL, conjunctivae normal, anicteric sclerae EOM intact bilaterally ENMT: external ear and nose normal, oropharynx normal Neck: trachea midline, no thyromegaly normal visual inspection Respiratory: normal respiratory effort, lungs clear to auscultation Cardiovascular: Rate/Rhythm: regular rate Gastrointestinal (Abdomen): normal bowel sounds, soft, nontender, no hepatosplenomegaly Musculoskeletal: Head/Neck/Chest: normocephalic right costovertebral ten derness Neurologic: PERRL, EOMI, accommodation nl, no face palsy, no dysarthria CN's II-XI intact bilaterally Psychiatric: A+Ox3, euthymic affect Results & Data Results & Data ([facility]) Vital Signs (Past 12 Hours) Vital Signs Temp Pulse Pulse Resp BP BP Pulse Ox 02/11/20 07:31 37.5 C 99 H 14 128/84 97 02/11/20 01:10 36.6 C 84 18 117/79 97 02/11/20 00:55 84 19 116/72 99 02/10/20 23:36 71 14 117/72 97 02/10/20 22:00 80 15 106/77 97 02/10/20 21:30 79 20 113/86 97 02/10/20 21:00 80 15 114/72 97
[2020-02-11] MEDS: SENNA 8.6 MG TAB PO SCH (09:45)
[2020-02-11] MEDS: TAMSULOSIN HCL 0.4 MG CAP PO SCH (09:45)
[2020-02-11] MEDS ORDERED: cefTRIAXone SODIUM 1,000 MG in DEXTROSE 5% 50 ML IV SCH (21:00)
--- NOTE | 2020-02-12 05:17 | Electrocardiogram Report ---
Test Reason : Blood Pressure : / mmHG Vent. Rate : 090 BPM Atrial Rate : 090 BPM P-R Int : 132 ms QRS Dur : 078 ms QT Int : 352 ms P-R-T Axes : 020 -04 002 degrees QTc Int : 430 ms Poor data quality, interpretation may be adversely affected Normal sinus rhythm Possible Inferior infarct Abnormal ECG When compared with ECG of 10-JUL-2010 20:37, Inverted T waves have replaced nonspecific T wave abnormality in Inferior leads Confirmed by Skip Caruso ([id number]) on 02/12/2020 5:16:43 AM Referred By: REFERRED SELF Confirmed By:Skip Caruso
[2020-02-12 07:32] LABS: Basophils # (auto) 0.01 K/uL (0-0.2); Basophils % (auto) 0.1 %; Eosinophils # (auto) 0.09 K/uL (0-0.5); Eosinophils % (auto) 1.3 %; Hematocrit (blood only) 34.8 % (37-47); Hemoglobin 11.7 g/dL (12.0-16.0); Immature Granulocytes # (auto) 0.01 K/uL (0.00-0.02); Immature Granulocytes % (auto) 0.1 %; Lymphocytes # (auto) 1.81 K/uL (1.2-3.4); Lymphocytes % (auto) 25.1 %; Mean Corpuscular Hemoglobin 29.2 pg (25-34); Mean Corpuscular Hgb Conc 33.6 g/dL (32-36); Mean Corpuscular Volume 86.8 fL (80-100); Mean Platelet Volume 9.9 fL (7.4-10.4); Monocytes # (auto) 0.73 K/uL (0.11-0.59); Monocytes % (auto) 10.1 %; Neutrophils # (auto) 4.55 K/uL (1.4-6.5); Neutrophils % (auto) 63.3 %; Platelet Count 197 K/uL (130-400); RDW Coefficient of Variation 12.8 % (11.5-14.5); RDW Standard Deviation 41.3 fL (36.4-46.3); Red Blood Count 4.01 M/uL (4.2-5.4)
[2020-02-12 08:08] LABS: Albumin Level 2.6 gm/dl (3.4-5.0); Calcium 8.4 mg/dl (8.5-10.1); Creatinine Clr Calc Pharmacy 71.1 ml/min; Est GFR (African American) 96.6; Est GFR (Non-African American) 83.3; Potassium 3.5 mmol/L (3.5-5.1)
[2020-02-12 08:12] LABS: Albumin Globulin Ratio 0.7 (0.9-2); Bilirubin,Total 0.3 mg/dl (0.2-1); Total Protein 6.6 gm/dl (6.4-8.2)
--- NOTE | 2020-02-12 08:28 | Hospitalist Progress Note ---
Date of Service February 12, 2020 Assessment & Plan (1) Pyelonephritis: -admission CT scan Findings compatible with right-sided pyelonephritis. Associated urothelial thickening of the collecting system and ureter is suggestive of associated pyelitis/ureteritis. Mild right-sided pelvocaliectasis with prominence of the right ureter is likely secondary to associated infection. Nonobstructing bilateral nephrolithiasis. Hysterectomy. Trace free pelvic fluid is likely physiologic. 4.7 x 5.2 cm right ovarian cyst. -empirically started on ceftriaxone, prn pain medications and prn anti-pyretics -02/11/2020 day time hospitalist updates: Patient reports history of hysterectomy 2 and half weeks ago and then subsequently she had fevers at home and may be incomplete bladder emptying. Patient reports right flank pain still present. She is not in distress. no vomiting. She reports that it is usual for her to have 2 bowel movements a week and her last bowel movement was on Saturday02/08/2020. Patient agree to starting flomax and bladder scan qshift and increase bowel regimen. Patient was evaluated by [facility] -Urine culture with E.coli that is pansensitive and as of 02/12/2020 blood cultures with no growth to date. Patient feeling better with resolution of right flank pain and wishes to be discharged.Patient transitioned to Ciprofloxacin IV in the AM of 02/12/2020. She -discharge medication of ciprofloxacin 500 mg twice a day for 13 more days sent electronically to [facility] at [address] [place] [address] for continuing antibiotics for the Pyelonephritis, also discharged medication of tamsulosin for 2 weeks to help with urination while being treated for the Pyelonephritis, acetaminophen prn q6 hours if pain or fever, and senna daily to help with bowel movements in general [facility] evaluated the patient on 02/11/2020 and recommend follow-up outpatient with them in 3 to 4 weeks after completion of antibiotics. scheduled appointments 02/19/2020 10:00 AM Provider Elroy Barahona MD Department [facility] 01/16/2021 2:50 PM Provider Elroy Barahona MD Department [facility] Acute Kidney Injury (resolved) -admission creatinine 1.24. improved with IV fluids to creatinine 0.88 by 02/11/2020 History of Hysterectomy Right ovarian cyst -outpatient follow up; Patient will have a CD of the 02/10/2020 CT abdomen/Pelvis which documents 4.7 x 5.2 cm right ovarian cyst for her to follow up with her usual OBGYN doctor Admission and Anticipated Discharge Date Admission Date: February 10, 2020 Subjective Patient feeling better with resolution of right flank pain and wishes to be discharged. no nausea. no vomiting. no shortness of breath. no chest pain. no dizziness. ambulates Review of Systems Review of Systems: All systems reviewed & are unremarkable except as noted in Subjective Physical Exam Constitutional: cooperative Eyes: PERRL, conjunctivae normal, anicteric sclerae EOM intact bilaterally ENMT: external ear and nose normal, oropharynx normal Neck: trachea midline, no thyromegaly normal visual inspection Respiratory: normal respiratory effort, lungs clear to auscultation Cardiovascular: Rate/Rhythm: regular rate Gastrointestinal (Abdomen): normal bowel sounds, soft, nontender, no hepatosplenomegaly Musculoskeletal: Head/Neck/Chest: normocephalic Neurologic: PERRL, EOMI, accommodation nl, no face palsy, no dysarthria CN's II-XI intact bilaterally Psychiatric: A+Ox3, euthymic affect Results & Data Results & Data ([facility]) Vital Signs (Past 12 Hours) Vital Signs Temp Pulse Resp BP Pulse Ox 02/12/20 07:29 36.8 C 80 16 102/69 96 02/11/20 23:12 37.1 C 85 16 98/64 L 94
[2020-02-12] MEDS ORDERED: CIPROFLOXACIN / D5W 400 MG/200 ML BAG IV STA (08:32)
--- NOTE | 2020-02-12 08:37 | Discharge Summary ---
Date of Service February 12, 2020 Admission HPI Per Admitting Provider A 39-year-old female with past medical history significant for history of kidney stones, history of recently on 01/22/20 had total laparoscopic hysterectomy with bilateral salpingectomy and cystoscopy. The patient says she had surgery because her uterus was attached to her bladder. Comes because today morning around 3:00 a.m. she woke up with abdominal pain, mostly in the right lower side and mildly on the right flank side associated with some fever. Denies any nausea, vomiting. No burning micturition, no hematuria. Normal bowel movements. No black stools or blood in the stools. No chest pain, no shortness of breath, no cough, no headache, no blurred vision, no earache, no runny nose, no sore throat, no dysphagia, no loss of sense of smell or taste. Currently resting comfortably and hemodynamically stable. Principal Diagnosis Pyelonephritis Acute Kidney Injury (resolved) History of Hysterectomy Right ovarian cyst Discharge Exam Constitutional cooperative Eyes PERRL, conjunctivae normal, anicteric sclerae EOM intact bilaterally ENMT external ear and nose normal, oropharynx normal Neck trachea midline, no thyromegaly normal visual inspection Respiratory normal respiratory effort, lungs clear to auscultation Cardiovascular Rate/Rhythm: regular rate Gastrointestinal (Abdomen) normal bowel sounds, soft, nontender, no hepatosplenomegaly Musculoskeletal Head/Neck/Chest: normocephalic Neurologic PERRL, EOMI, accommodation nl, no face palsy, no dysarthria CN's II-XI intact bilaterally Psychiatric A+Ox3, euthymic affect Discharge Data Allergies Allergy/AdvReac Type Severity Reaction Status Date / Time adhesive Allergy Intermediate Redness of Verified 02/10/20 20:15 Skin Bactrim Allergy Unknown HIVES Verified 02/07/16 14:43 lemon Allergy Unknown HIVES Verified 02/10/20 20:15 orange Allergy Unknown HIVES Verified 02/10/20 20:15 Sulfa (Sulfonamide Allergy Unknown HIVES Verified 02/10/20 20:15 Antibiotics) sulfamethoxazole Allergy Unknown HIVES Verified 02/10/20 20:15 trimethoprim Allergy Unknown HIVES Verified 02/10/20 20:15 Consultations 02/10/20 20:38 ED Decision to Admit Stat 02/11/20 08:00 Consult Urology Routine 02/12/20 08:20 Burn CD for patient Stat Ordered Studies 02/10/20 19:00 CT abd pelvis IV con only Stat Hospital Course (1) Pyelonephritis: -admission CT scan Findings compatible with right-sided pyelonephritis. Associated urothelial thickening of the collecting system and ureter is suggestive of associated pyelitis/ureteritis. Mild right-sided pelvocaliectasis with prominence of the right ureter is likely secondary to associated infection. Nonobstructing bilateral nephrolithiasis. Hysterectomy. Trace free pelvic fluid is likely physiologic. 4.7 x 5.2 cm right ovarian cyst. -empirically started on ceftriaxone, prn pain medications and prn anti-pyretics -02/11/2020 day time hospitalist updates: Patient reports history of hysterectomy 2 and half weeks ago and then subsequently she had fevers at home and may be incomplete bladder emptying. Patient reports right flank pain still present. She is not in distress. no vomiting. She reports that it is usual for her to have 2 bowel movements a week and her last bowel movement was on Saturday02/08/2020. Patient agree to starting flomax and bladder scan qshift and increase bowel regimen. Patient was evaluated by [facility] -Urine culture with E.coli that is pansensitive and as of 02/12/2020 blood cultures with no growth to date. Patient feeling better with resolution of right flank pain and wishes to be discharged.Patient transitioned to Ciprofloxacin IV in the AM of 02/12/2020. She -discharge medication of ciprofloxacin 500 mg twice a day for 13 more days sent electronically to [facility] at [address] [place] [id number] for continuing antibiotics for the Pyelonephritis, also discharged medication of tamsulosin for 2 weeks to help with urination while being treated for the Pyelonephritis, acetaminophen prn q6 hours if pain or fever, and senna daily to help with bowel movements in general [facility] evaluated the patient on 02/11/2020 and recommend follow-up outpatient with them in 3 to 4 weeks after completion of antibiotics. scheduled appointments 02/19/2020 10:00 AM Provider Elroy Barahona MD Department [facility] 01/16/2021 2:50 PM Provider Elroy Barahona MD Department [facility] Acute Kidney Injury (resolved) -admission creatinine 1.24. improved with IV fluids to creatinine 0.88 by 02/11/2020 History of Hysterectomy Right ovarian cyst -outpatient follow up; Patient will have a CD of the 02/10/2020 CT abdomen/Pelvis which documents 4.7 x 5.2 cm right ovarian cyst for her to follow up with her usual OBGYN doctor Total Time Total Time Spent Total Time Spent (In Minutes): 40 minutes Total Time Includes: Examination of the Patient, Discharge Planning, Medication Reconciliation and Communication With Other Providers Discharge Plan Discharge Items Patient Disposition: Home - Self-Care Reason For Visit: ABDOMINAL PAIN Discharge Diagnosis: Pyelonephritis Acute Kidney Injury (resolved) History of Hysterectomy Right ovarian cyst Condition on Discharge: Good Activity: Resume your previous activity Non-emergency contact: Primary Care Provider and Urologist Call non-emergency contact if: you have any medication questions Follow-up/Referrals: Elroy Barahona MD [Primary Care Provider] - Diet: Heart Healthy Addtl Attending Provider Instructions: discharge medication of ciprofloxacin 500 mg twice a day for 13 more days sent electronically to [facility] at [address] [place] [address] for continuing antibiotics for the Pyelonephritis, also discharged medication of tamsulosin for 2 weeks to help with urination while being treated for the Pyelonephritis, acetaminophen prn q6 hours if pain or fever, and senna daily to help with bowel movements in general [facility] evaluated the patient on 02/11/2020 and recommend follow-up outpatient with them in 3 to 4 weeks after completion of antibiotics. Patient will have a CD of the 02/10/2020 CT abdomen/Pelvis which documents 4.7 x 5.2 cm right ovarian cyst for her to follow up with her usual OBGYN doctor scheduled appointments 02/19/2020 10:00 AM Provider Elroy Barahona MD Department [facility] 01/16/2021 2:50 PM Provider Elroy Barahona MD Department [facility] Add Corporate Affairs Manager Provider Instructions: 02/10/2020 CT abdomen/Pelvis Findings compatible with right-sided pyelonephritis. Associated urothelial thickening of the collecting system and ureter is suggestive of associated pyelitis/ureteritis. Mild right-sided pelvocaliectasis with prominence of the right ureter is likely secondary to associated infection. Nonobstructing bilateral nephrolithiasis. Hysterectomy. Trace free pelvic fluid is likely physiologic. 4.7 x 5.2 cm right ovarian cyst. Pending Studies at Discharge: No Stand-Alone Forms: My [facility] Storie, Smoking Cessation Medications and DC Order Prescriptions: New sennosides [Senokot] 8.6 mg Tablet 8.6 mg PO QAM 30 Days Qty: 30 RF: 0 ciprofloxacin HCl 500 mg tablet 500 mg PO Q12H 13 Days Qty: 26 RF: 0 tamsulosin 0.4 mg Capsule 0.4 mg PO QAM 14 Days Qty: 14 RF: 0 acetaminophen 325 mg Tablet 325 mg PO Q6H PRN (Reason: fever or pain) 10 Days Qty: 40 RF: 0 Continued albuterol sulfate 90 mcg/actuation Hfa Aerosol Inhaler 1 puff INHALATION Q6H PRN (Reason: ASTHMA) RF: 0 oxycodone-acetaminophen [Percocet] 5-325 mg Tablet 1 tab PO Q4H PRN (Reason: pain) Qty: 14 RF: 0 acetaminophen [Tylenol] 325 mg Tablet 0 mg PO QID PRN (Reason: Pain) RF: 0 ibuprofen 200 mg Tablet 200 mg PO Q6H PRN (Reason: Pain) RF: 0 docusate sodium [Stool Softener] 100 mg Capsule 100 mg PO DAILY PRN (Reason: Constipation) RF: 0 Discharge Orders: Discharge Order (Routine); Ordered 02/12/20 Ordered By: Thomas Cabrera Admission Data Admit Date/Time: 02/10/20 23:51 Attending Provider: Thomas Cabrera Admit Provider: Musa Bautista Primary Care Provider: Elroy Barahona Other Providers: Musa Bautista ; Zafar Melo ; Lucio Gee ; Akira Snyder I. ; Lit Stuart ; Mary Salcido ; María Hdz ; Gerald Camilo ; Sheri Waggoner ; Rupal Sorto ; Connor Sidhu ; Joan Boateng
[2020-02-12] MEDS: TAMSULOSIN HCL 0.4 MG CAP PO SCH (09:24)
[2020-02-12] MEDS: SENNA 8.6 MG TAB PO SCH (09:24)
[2020-02-12] MEDS ORDERED: CIPROFLOXACIN / D5W 400 MG/200 ML BAG IV SCH (21:00)
== END 2020-02-12 12:35 | disposition home or self-care (01) | DRG 690 ==
LOC: ED 18:24 → 3W 23:51 → 3N 02-12 05:58